=== PATIENT | male | born 1940 | race Caucasian/White ===

== ENCOUNTER 2017-01-01 08:52 | Day surgery (SDC) | payer MEDICARE, OTHER ==
[2017-01-01] MEDS ORDERED: LACTATED RINGERS 1,000 ML IV ONE ×2 (09:14→09:28)
[2017-01-01] MEDS ORDERED: MIDAZOLAM 2 MG/2 ML VIAL IVP ONE (09:25)
[2017-01-01] MEDS ORDERED: fentaNYL 100 MCG/2 ML VIAL IVP ONE (09:25)
[2017-01-01 10:38] VITALS: BP 116/58
== END 2017-01-01 08:53 | disposition home or self-care (01) ==
LOC: SDS 08:52
PROVIDERS: ATTEND Surgery
PROC: 0DBH8ZX Excision of Cecum, Via Natural or Artificial Opening Endoscopic, Diagnostic (ICD-10-PCS; principal; 2017-01-01 09:45)
DX: Z12.11 Encounter for screening for malignant neoplasm of colon (principal); K57.30 Diverticulosis of large intestine without perforation or abscess without bleeding; D12.0 Benign neoplasm of cecum; K21.9 Gastro-esophageal reflux disease without esophagitis; I10 Essential (primary) hypertension; Z87.891 Personal history of nicotine dependence; Z79.82 Long term (current) use of aspirin
CPT/HCPCS: 45380; J7120

== ENCOUNTER 2019-07-02 15:42 | Outpatient (CLI) | payer MEDICARE ==
--- NOTE | 2019-07-02 17:09 | XRAY Report ---
Reason: COUGH Procedure Date: 07/02/2019 Accession Number: [id number] / [id number] Procedure: XR - Chest 2 View X-Ray CPT Code: 16034 Final Report FULL RESULT: EXAM: CHEST RADIOGRAPHY EXAM DATE: 07/02/2019 04:07 PM. CLINICAL HISTORY: COUGH. COMPARISON: None. TECHNIQUE: 2 views. FINDINGS: Lungs/Pleura: Right basilar infiltrate or atelectasis. Left basilar atelectasis. No pleural effusion. No pneumothorax. Increased AP diameter and flattened hemidiaphragms. Mediastinum: Heart size normal. Calcified aorta. Other: None. IMPRESSION: 1. Right basilar infiltrate or atelectasis. 2. Left basilar atelectasis RADIA
== END 2019-07-02 15:43 | disposition home or self-care (01) ==
LOC: DI 15:42
PROVIDERS: ATTEND Internal Medicine
DX: J98.11 Atelectasis (principal)
CPT/HCPCS: 71046

== ENCOUNTER 2020-12-24 11:51 | Outpatient (CLI) | payer MEDICARE, BC ==
[2020-12-24] MEDS ORDERED: IOPAMIDOL-300 100 ML VIAL ONE (12:16)
[2020-12-24] MEDS ORDERED: IOVERSOL 320 50 ML VIAL ONE (12:16)
--- NOTE | 2020-12-24 13:53 | CT Report ---
PROCEDURE: Abdomen/Pelvis W INDICATIONS: ABD MASS CONTRAST: IV CONTRAST: Isovue 300 ml: 100 PO CONTRAST: Optiray 320 ml50 TECHNIQUE: After the administration of IV and oral contrast, 5 mm thick sections acquired from the diaphragms to the symphysis. 5 mm thick coronal and sagittal reformats were acquired. For radiation dose reducti on, the following was used: automated exposure control, adjustment of mA and/or kV according to janie ent size. COMPARISON: None. FINDINGS: Image quality: Excellent. ABDOMEN: Lung bases: Lung bases are clear. Heart size is normal. A small hiatal hernia is incidentally note d. Solid organs: Liver and spleen are normal in size and enhancement. Gallbladder wall does not appear thickened. Biliary system is non dilated. Pancreas enhances normally. No adrenal nodules. Kidneys demonstrate normal size and enhancement. There is severe bilateral hydronephrosis. Peritoneum and bowel: Bowel loops demonstrate normal wall thickness and caliber. No free fluid or a ir. Nodes and vessels: No retroperitoneal or mesenteric adenopathy by size criteria. Aorta and inferior vena cava are normal in size. Atherosclerotic calcification is seen. Miscellaneous: No ventral hernias. PELVIS: Genitourinary: The bladder is grossly enlarged, measuring 27 cm craniocaudal, as seen above the level of the umbilicus. Vasectomy clips are seen. Miscellaneous: No adenopathy. There is a fat-containing right inguinal hernia. Bones: No suspicious bony lesions. No vertebral body compression fractures. Age-appropriate degene rative changes are seen, which are worst at the L5-S1 level. IMPRESSION: Urinary retention, with a severely distended urinary bladder with severe bilateral hydro nephrosis. Incidental note is made of: Small hiatal hernia Fat-containing right inguinal hernia Vasectomy clips Atherosclerotic calcification Note: Case discussed by telephone with Vangie Wyatt at 12:40 PM [facility] on 12/24/2020. She directs th at if the patient is uncomfortable, the patient should go to the emergency department for further francisca luation/treatment. Please also discussed by telephone with Dr. Kaufman at 12:51 PM [place] time on 12/24/2020. Reviewed by: Real Rogers MD on 12/24/2020 12:[address] [facility] Approved by: Real Rogers MD on 12/24/2020 12:[address] [facility] Station ID: [id number]
[2020-12-24] MEDS ORDERED: IOVERSOL 320 50 ML VIAL PO ONE (15:57)
[2020-12-24] MEDS ORDERED: IOPAMIDOL-300 100 ML VIAL IVP ONE (15:57)
== END 2020-12-24 11:52 | disposition home or self-care (01) ==
LOC: DI 11:51
PROVIDERS: ATTEND Family Medicine
DX: R33.9 Retention of urine, unspecified (principal); N13.30 Unspecified hydronephrosis

== ENCOUNTER 2020-12-24 13:57 | Emergency (ER) | payer MEDICARE, OTHER ==
[2020-12-24 14:47] LABS: CALCIUM 9.8 mg/dL (8.5-10.3); CREATININE 1.3 mg/dL (0.6-1.2); POTASSIUM 3.8 mmol/L (3.5-5.0)
--- NOTE | 2020-12-24 15:30 | ED Physician Documentation ---
PD HPI MALE - Stated complaint Stated Complaint: [facility] BLADDER RADIOLOGY SEND - Chief complaint Chief Complaint: Abd Pain - History obtained from History obtained from: Patient - History of Present Illness Timing - onset: How many weeks ago (he has had dribbling urine and hesitancy for weeks, with feeling of only dribbles at times the past couple of days. Seen by PMD and noted to have abd fullness, so had CT abd ordered. This was found to have very full bladder and so Radiologist had pt come to ER for eval of urinary retention.) Timing - duration: Days, Weeks Timing - details: Gradual onset, Still present (worse the past several days or so, with notable lower abd fullness/distension.) Associated symptoms: Urinary frequency. No: Testiclar pain, Scrotal swelling Similar symptoms before: Has not had sx before Recently seen: Clinic (seen by PMD for urinary symtpoms. Started Tamsuilosin 3 days ago. Had outpt CT abd ordered that was done shortly [employer].) Review of Systems Constitutional: denies: Fever, Chills Nose: denies: Rhinorrhea / runny nose, Congestion Throat: denies: Sore throat Respiratory: denies: Cough GI: reports: Abdominal Swelling. denies: Abdominal Pain, Nausea, Vomiting, Constipation, Diarrhea : reports: Frequency, Hesitancy. denies: Dysuria PD PAST MEDICAL HISTORY - Past Medical History Cardiovascular: Hypertension Respiratory: None Endocrine/Autoimmune: Type 2 diabetes GI: None : None HEENT: Chronic vision loss Psych: None Derm: None - Past Surgical History General: Colonoscopy Ortho: Arthroscopic surgery Derm: Skin cancer surgery - Present Medications Home Medications: Ambulatory Orders Medication Instructions Recorded Confirmed Aspirin [Aspirin EC] 81 mg PO DAILY 12/31/16 12/31/16 Losartan Potassium 50 mg PO DAILY 12/31/16 12/31/16 Multivit-Min/FA/Lycopen/Lutein 1 each PO DAILY 12/31/16 12/31/16 [Centrum Silver Men Tablet] hydroCHLOROthiazide 25 mg PO DAILY 12/31/16 12/31/16 [Hydrochlorothiazide] metFORMIN [Glucophage] 500 mg PO BIDWM 12/31/16 12/31/16 - Allergies Allergies/Adverse Reactions: Allergies Allergy/AdvReac Type Severity Reaction Status Date / Time No Known Drug Allergies Allergy Verified 12/24/20 14:12 PD ED PE NORMAL - Vitals Vital signs reviewed: Yes - General General: Alert and oriented X 3, No acute distress, Well developed/nourished - Cardiac Cardiac: RRR, No murmur - Respiratory Respiratory: No respiratory distress, Clear bilaterally - Abdomen Abdomen: Soft, Other (notable distension and fullness lower abd to above the umbilicus. Dullness to percussion in that area. ). No: Normal bowel sounds (diminished) - Back Back: No CVA TTP - Derm Derm: Normal color, Warm and dry - Neuro Neuro: Alert and oriented X 3, No motor deficit, Normal speech Results - Vitals Vitals: Vital Signs - 24 hr 12/24/20 12/24/20 12/24/20 14:10 16:43 16:49 Temperature 36.1 C L Heart Rate 64 67 Respiratory 16 16 Rate Blood Pressure 187/75 H 189/84 H O2 Saturation 97 95 Oxygen O2 Source Room air - Labs Labs: Laboratory Tests 12/24/20 14:35 Sodium 139 Potassium 3.8 Chloride 101 Carbon Dioxide 28 Anion Gap 10.0 BUN 28 H Creatinine 1.3 H Estimated GFR (MDRD) 53 L Glucose 94 Calcium 9.8 - Rads (name of study) abd/pelvic CT outpt Radiology: Prelim report reviewed (notable for very distended bladder and bilateral hydronephrosis. ) PD MEDICAL DECISION MAKING - ED course Complexity details: re-evaluated patient (garduno by nursing and patient had 3200 ml out. ), considered differential, d/w patient Departure - Departure Disposition: 01 Home, Self Care Clinical Impression: Urinary retention Condition: Stable Record reviewed to determine appropriate education?: Yes Instructions: ED Catheter Care Diana, APRIL Retention Urinary Male Follow-Up: Shorty Paredes MD [Primary Care Provider] - Comments: Continue your current medications including the new one for your prostate. Have the Garduno catheter in place to allow continued drainage of the bladder and restoring the tone of the bladder muscle. Follow-up with urology. Call the urologist office that you were going to see and let them know you have a catheter now in place and see if that changes the timing on your follow-up appointment. Discharge Date/Time: 12/24/20 16:49
[2020-12-24 16:43] VITALS: BP 189/84
== END 2020-12-24 16:49 | disposition home or self-care (01) ==
LOC: ED 13:57
DX: R33.9 Retention of urine, unspecified (principal); N13.30 Unspecified hydronephrosis
CPT/HCPCS: 36415; 51702; 74177; 80048; 99282; 99283; Q9967

== ENCOUNTER 2021-02-15 15:40 | Outpatient (CLI) | payer MEDICARE, OTHER ==
[2021-02-15 19:54] LABS: BASOPHILS % (AUTO) 0.6 %; EOSINOPHILS # (AUTO) 0.3 10^3/uL (0.0-0.7); EOSINOPHILS % (AUTO) 4.3 %; HCT - HEMATOCRIT 42.9 % (42.0-52.0); HGB - HEMOGLOBIN 14.3 g/dL (14.0-18.0); LYMPHOCYTES # (AUTO) 1.3 10^3/uL (1.5-3.5); LYMPHOCYTES % (AUTO) 19.9 %; MEAN CORPUSCULAR HEMOGLOBIN 33.3 pg (27.0-31.0); MEAN CORPUSCULAR HGB CONC 33.3 g/dL (32.0-36.0); MEAN PLATELET VOLUME 10.7 fL (7.4-11.4); MONOCYTES # (AUTO) 0.6 10^3/uL (0.0-1.0); MONOCYTES % (AUTO) 8.3 %; NEUTROPHILS # (AUTO) 4.5 10^3/uL (1.5-6.6); NEUTROPHILS % (AUTO) 66.6 %; PLT - PLATELET COUNT 157 10^3/uL (130-450); RED BLOOD COUNT 4.29 10^6/uL (4.70-6.10); RED CELL DISTRIBUTION WIDTH 13.4 % (12.0-15.0); WHITE BLOOD COUNT 6.7 x10^3/uL (4.8-10.8)
[2021-02-15 20:05] LABS: ALBUMIN 4.7 g/dL (3.2-5.5); ALBUMIN/GLOBULIN RATIO 1.8 (1.0-2.2); BILIRUBIN,TOTAL 0.7 mg/dL (0.2-1.0); CREATININE 1.1 mg/dL (0.6-1.2); POTASSIUM 4.1 mmol/L (3.5-5.0); TOTAL PROTEIN 7.3 g/dL (6.7-8.2)
== END 2021-02-15 15:41 | disposition home or self-care (01) ==
LOC: LAB.S 15:40
PROVIDERS: ATTEND Family Medicine
DX: I10 Essential (primary) hypertension (principal)
CPT/HCPCS: 36415; 80053; 85025

== ENCOUNTER 2022-04-24 12:57 | Outpatient (CLI) | payer MEDICARE, OTHER ==
--- NOTE | 2022-04-24 20:07 | Ultrasound Report ---
PROCEDURE: Abdomen Limited INDICATIONS: ABD MASS TECHNIQUE: Real-time focused scanning was performed of the abdomen, with image documentation. COMPARISON: CT abdomen and pelvis 12/24/2020. FINDINGS: Targeted ultrasound of the left upper quadrant abdominal wall at the palpable abnormality. Subcutaneous isoechoic mass measuring 3.6 x 2.4 x 1.1 cm. The mass is circumscribed. No posterior aco ustic features. No fluid collection. No hernia. IMPRESSION: Left upper abdominal wall subcutaneous lipoma measuring 3.6 cm. Reviewed by: Javy Camarillo MD on 04/24/2022 8:06 PM PST Approved by: Javy Camarillo MD on 04/24/2022 8:06 PM PST Station ID: [id number]
== END 2022-04-24 12:58 | disposition home or self-care (01) ==
LOC: DI 12:57
PROVIDERS: ATTEND Nurse Practitioner Family
DX: D17.1 Benign lipomatous neoplasm of skin and subcutaneous tissue of trunk (principal)

== ENCOUNTER 2023-11-17 08:29 | Outpatient (CLI) | payer MEDICARE, OTHER ==
--- NOTE | 2023-11-17 10:04 | Ultrasound Report ---
PROCEDURE: Abdomen Limited INDICATIONS: CHRONIC LIVER DISEASE TECHNIQUE: Real-time focused scanning was performed of the abdomen, with image documentation. COMPARISONS: None. FINDINGS: Liver: Liver is normal in size and increased in echogenicity. Gallbladder: No gallstones, sludge, wall thickening or pericholecystic edema. Biliary ducts: Intrahepatic bile ducts are non-dilated. Extrahepatic bile duct caliber measures 2 m m. Normal is 6-7 mm or less in diameter, or 10 mm or less post-cholecystectomy. Pancreas: Visualized portions of the pancreas are sonographically normal. Right kidney: Normal in size and echotexture. Right kidney measures 10.2 cm long. No hydronephrosis or nephrolithiasis. No solid masses. No complex renal cystic lesions which require follow-up. IVC: Intrahepatic inferior vena cava is patent. Miscellaneous: No free abdominal fluid. IMPRESSION: Liver is increased in echogenicity, most consistent with hepatic steatosis. Reviewed by: Khari Zhang MD on 11/17/2023 10:03 AM PDT Approved by: Khari Zhang MD on 11/17/2023 10:03 AM PDT Station ID: [id number]
== END 2023-11-17 08:30 | disposition home or self-care (01) ==
LOC: DI 08:29
DX: K76.9 Liver disease, unspecified (principal)